=== PATIENT | female | born 1935 | race Caucasian/White ===

== ENCOUNTER 2020-09-11 14:59 | Emergency (ER) | payer MEDICARE, SELFPAY ==
[2020-09-11] VITALS (8 sets, daily range): BP systolic 147–189; BP diastolic 60–85; PULSE 72–102; RESP 17–18; TEMP 36.6–36.8; O2SAT 97–100; BMI 22.3
--- NOTE | ~2020-09-11 | CT_ITS ---
EXAMINATION: CT BRAIN AND CT CERVICAL SPINE. CLINICAL INFORMATION: Fall, dementia. COMPARISON: None TECHNIQUE: 5 mm thin axial and reformatted 2 mm thin coronal and sagittal images of brain were obtained without contrast. Axial 3 mm thin and reformatted 2 mm thin sagittal and coronal images of brain were obtained. DLP 833 FINDINGS: Brain: There is no acute intra-axial, extra-axial bleed, masses or midline shift. There is no acute infarction in evolution. The lateral ventricles are symmetrical in size and configuration without enlargement. Garrido to white matter differentiation is maintained normal. There is atherosclerotic calcification of bilateral internal carotid, vertebral and basilar arteries. Bone windows reveal no calvarial abnormality. There is no scalp soft tissue abnormality. Bilateral paranasal sinuses and mastoid air cells are well-aerated. Cervical spine: There is normal cervical lordosis. The vertebral heights are normal. There is grade 1 anterolisthesis C4 over C5. Rest of the vertebral alignment is preserved. There is moderate loss of disc height, posterior spondylosis and vacuum disc phenomena at the C6-C7 disc level. Minimal loss of C3-C4 disc height is noted. The craniovertebral junction appears normal. The C1-C2 alignment is normal. There is mild to moderate right C2-C3 moderate to significant left C4-C5 facet joint arthropathy. Craniovertebral junction and C1-C2 alignment is normal. There is a small bone island in sclerotic left C1 lateral mass. No visible acute acute fracture, dislocation or subluxation seen. The paravertebral soft tissues are normal. No lytic process seen. Mild scarring is seen in both lung apices. CT/CT cervical spine wo con IMPRESSION: No acute intracranial process seen. Age-related cerebral volume loss with atherosclerotic vascular calcification. There is no acute fracture, dislocation. There is grade 1 anterolisthesis C4 over C5 with significant degenerative disc changes and vacuum disc phenomena at C6-C7 disc level.
--- NOTE | ~2020-09-11 | CT_ITS ---
EXAMINATION: CT CHEST, ABDOMEN AND PELVIS WITHOUT CONTRAST CLINICAL INFORMATION: Reason for Exam unwitnessed falls COMPARISON: No pertinent prior studies are available for comparison. TECHNIQUE: Multidetector volumetric imaging was performed from the thoracic inlet through the pubic symphysis without IV contrast. Sagittal and coronal reformatted images were obtained on the technologist's workstation. This CT examination was performed using dose optimization techniques as appropriate, variously including the following: *Automated exposure control *Adjustment of mA and/or kV according to patient size (this includes techniques or standardized protocols for targeted exams where dose is matched to indication/reason for exam; i.e. extremities or head) *Use of iterative reconstruction technique DLP: 517 mGy-cm FINDINGS: CHEST: Lung: Atelectasis is present. At the lung bases. Mediastinum: Heart size is normal. Extensive coronary artery calcifications are present. No mediastinal hematoma is seen. Pericardium/Pleura: No significant effusion. No pleural mass or thickening. No pneumothorax is present. Chest Wall/Axilla: No chest wall injury. No rib fractures seen. An chronic appearing compression fracture noted in T12. Degenerative changes noted through the rest of the thoracic spine a hemangioma is present in the T4 vertebral body. ABDOMEN/PELVIS: Peritoneal Space: No significant free air or free fluid identified. Liver, Gallbladder, Biliary Tree: The liver is normal in size, shape, and attenuation. No focal hepatic lesion or biliary ductal dilatation is present. The gallbladder is unremarkable with no evidence of radiopaque gallstones, gallbladder wall thickening, or obvious pericholecystic inflammatory changes. Pancreas: Unremarkable Spleen: Unremarkable Adrenal Glands: Unremarkable Kidneys and Ureters: The kidneys are normal in size, shape, and attenuation. No hydronephrosis, hydroureter, or calculi seen. No perinephric stranding. Bladder: Bladder is nearly empty but unremarkable. Gastrointestinal Tract: Large hiatal hernia is present with most of the stomach within the chest. Extensive colonic diverticular changes are present especially in the sigmoid. No convincing evidence of diverticulitis. The small bowel is unremarkable. The appendix is unremarkable. Abdominal Wall: No significant hernia is appreciated. Lymph Nodes: No retroperitoneal lymphadenopathy seen. Vascular: Calcific atherosclerotic changes present in the aorta and its branches. The IVC appears unremarkable. PELVIC VISCERA: Free fluid is present in the pelvis. This is greater density and not blood density. There is a rounded 7.7 x 4.3 x 4.5 cm fluid density mass in the left adnexa which may represent a left ovarian cyst. A small retroflexed uterus appears to be present. No right adnexal mass is seen. OSSEUS STRUCTURES: Marked osteopenia and degenerative changes with multiple probably chronic compression fractures involving L4 L3 and L2 L1 and T12. Marked degenerative changes present in both hips. No hip CT/CT abdomen pelvis wo con fracture seen. IMPRESSION: No evidence of an acute traumatic injury. Incidental note made of: 1. Extensive coronary disease 2. Multiple vertebral compression fractures and marked degenerative changes in both hips 3. Large hiatal hernia with much of the stomach within the chest 4. Extensive colonic diverticular disease without diverticulitis 5. Large left ovarian cyst which is not normal for patient of 85 years of age. Recommend follow-up ultrasound in 3-6 months
--- NOTE | 2020-09-11 15:24 | PC.NURSE ---
patient [id number], pt stated she has chest pressure not actual pain- unable to put a number on the pain scale, panel monitor applied nsr 80s, vss, pt awaiting provider, will continue to monitor.
--- NOTE | 2020-09-11 15:39 | ED_ITS ---
HPI - Chest Pain General Chief Complaint: Chest Pain <LEAH Ramsey Last Filed: 09/11/20 16:41> Stated Complaint: general weakness <LEAH Ramsey Last Filed: 09/11/20 16:41> Time Seen by Provider: 09/11/20 15:27 <LEAH Ramsey Last Filed: 09/11/20 16:41> Source: EMS <LEAH Ramsey Last Filed: 09/11/20 16:41> Mode of arrival: EMS <LEAH Ramsey Last Filed: 09/11/20 16:41> History of Present Illness HPI narrative: 85-year-old female with a past medical history hypertension, hypothyroid, dementia, hyperlipidemia, osteopenia BIBA stating she was unable to get herself off the couch this morning with increased weakness. Also reports 2 falls at home. States she lives at home alone, ambulates with cane. Admits to substernal chest discomfort. Denies SOB, abdominal pain, nausea/vomiting. Denies head trauma or LOC during falls History limited due to patient's baseline dementia <LEAH Ramsey Last Filed: 09/11/20 16:41> MD complaint: chest discomfort <LEAH Ramsey Last Filed: 09/11/20 16:41> Related Data Home Medications: Home Medications Medication Instructions Recorded Confirmed [id number] acid 0.4 1 tab PO DAILY 06/25/20 09/11/20 mg-lycopene 300 mcg-lutein 250 mcg tablet lisinopril-hydrochlorothiazide 1 tab PO DAILY 09/11/20 09/11/20 Previous Rx's Medication Instructions Recorded atorvastatin 40 mg tablet 40 mg PO DAILY #90 tab 04/29/20 levothyroxine 50 mcg tablet 50 mcg PO DAILY #90 tab 07/02/20 <LEAH Ramsey Last Filed: 09/11/20 16:41> Allergies/Adverse Reactions: Allergies Allergy/AdvReac Type Severity Reaction Status Date / Time No Known Allergies Allergy Verified 06/25/20 15:10 <LEAH Ramsey Last Filed: 09/11/20 16:41> Review of Systems Review of Systems: Constitutional: No Fever, No Chills Cardiovascular: + Chest Pain, No SOB Respiratory: No Cough Gastrointestinal: No Nausea, No Vomiting, No Diarrhea, No Abdominal pain Musculoskeletal: No joint pain Skin: No Skin Lesions, No rash Neuro: + Weakness History limited due to patient's baseline dementia <LEAH Ramsey - Last Filed: 09/11/20 16:41> Yes all other systems are reviewed and are negative <LEAH Ramsey - Last Filed: 09/11/20 16:41> [facility] Past Medical History Attestation statement: The following information was validated with the patient. <LEAH Ramsey - Last Filed: 09/11/20 16:41> Medical History: Medical History (Updated 09/11/20 @ 16:41 by LEAH Ramsey) Acquired hypothyroidism Dementia Dyslipidemia Essential hypertension Influenza vaccination declined Mammogram declined Menopause syndrome Osteopenia Squamous cell carcinoma Vaccination refused by patient <LEAH Ramsey - Last Filed: 09/11/20 16:41> Family History Family History: Family History Sister Brain cancer <LEAH Ramsey - Last Filed: 09/11/20 16:41> Social History Social History: Social History Alcohol intake: never Smoking Status: Former smoker Use of substances other than those prescribed or required for medical reasons: No Advance Directives: No Advance Directives Information Provided: Yes <LEAH Ramsey - Last Filed: 09/11/20 16:41> Physical Exam Vital Signs: Vital Signs: Last Vital Signs Temp 98.2 F 09/11/20 22:39 Pulse 76 09/12/20 03:50 Resp 20 09/12/20 03:50 BP 162/67 H 09/12/20 03:50 Pulse Ox 98 09/12/20 03:50 Body Mass Index 22.3 <LEAH Ramsey - Last Filed: 09/11/20 16:41> Vital Signs: Last Vital Signs Temp 98.2 F 09/11/20 22:39 Pulse 76 09/12/20 03:50 Resp 20 09/12/20 03:50 BP 162/67 H 09/12/20 03:50 Pulse Ox 98 09/12/20 03:50 Body Mass Index 22.3 <Gisel Ceja NP - Last Filed: 09/12/20 01:45> Vital Signs: Last Vital Signs Temp 98.2 F 09/11/20 22:39 Pulse 76 09/12/20 03:50 Resp 20 09/12/20 03:50 BP 162/67 H 09/12/20 03:50 Pulse Ox 98 09/12/20 03:50 Body Mass Index 22.3 <Lincoln Mcfarland MD - Last Filed: 09/12/20 05:02> Const: General: cooperative, healthy appearing and comfortable <Kymberly Fatima PA - Last Filed: 09/11/20 16:41> Orientation/consciousness: patient oriented x3 <Kymberly Fatima PA - Last Filed: 09/11/20 16:41> Limitations: no limitations <Kymberly Fatima PA - Last Filed: 09/11/20 16:41> HENMT: Head: Yes normal to inspection <LEAH Ramsey - Last Filed: 09/11/20 16:41> Ears: hearing grossly normal bilaterally <Kymberly Fatima PA - Last Filed: 09/11/20 16:41> General nose exam: Normal external nose present <Kymberly Fatima PA - Last Filed: 09/11/20 16:41> Face and sinus: Yes normal facial exam <Kymberly Fatima PA - Last Filed: 09/11/20 16:41> Eyes: General: appearance normal, both eyes and all related structures <Kymberly Fatima PA - Last Filed: 09/11/20 16:41> Pupils: Equal, round and reactive pupils present <Kymberly Fatima PA - Last Filed: 09/11/20 16:41> EOM: EOMs intact bilaterally <Kymberly Fatima PA - Last Filed: 09/11/20 16:41> Neck: Neck: Yes normal visual inspection and Yes no meningeal signs <Kymberly Fatima PA - Last Filed: 09/11/20 16:41> Resp: Effort & Inspection: normal respiratory effort <Kymberly Fatima PA - Last Filed: 09/11/20 16:41> Auscultation: clear to auscultation bilaterally, no rhonchi and no wheezes <Kymberly Fatima PA - Last Filed: 09/11/20 16:41> Cardio: Rate: regular rate <Kymberly Akua [place] - Last Filed: 09/11/20 16:41> Heart sounds: S1 normal heart sound present and S2 normal heart sound present <Kymberly Akua PA - Last Filed: 09/11/20 16:41> GI: Inspection: Yes normal to inspection <Kymberly Fatima [place] - Last Filed: 09/11/20 16:41> Palpation (GI): Soft to palpation, nontender, no guarding and not rigid <Kymberly Akua [place] - Last Filed: 09/11/20 16:41> Skin: Rashes: no rashes <Kymberly Fatima [place] - Last Filed: 09/11/20 16:41> Wounds: no wounds <Kymberlydong Fatima [place] - Last Filed: 09/11/20 16:41> Neuro: General: patient oriented x3, tone normal, moves all extremities, no meningeal signs, no focal motor deficits and CN's II-XI intact bilaterally <Kymberly Akua [place] - Last Filed: 09/11/20 16:41> Cranial nerves: Yes Equal, round and reactive pupils present <Kymberly Fatima [place] - Last Filed: 09/11/20 16:41> Gait exam (Neuro): Normal gait present <Kymberly Fatima [place] - Last Filed: 09/11/20 16:41> Motor exam (neuro): 5/5 motor strength present throughout, Pronator motor function not present and no tremor noted <Kymberly Fatima [place] - Last Filed: 09/11/20 16:41> Extrem: General: Yes normal to inspection and Yes no pedal edema <Kymberly Fatima [place] - Last Filed: 09/11/20 16:41> Course Course Course Narrative: CT head/brain wo con IMPRESSION: No acute intracranial process seen. Age-related cerebral volume loss with atherosclerotic vascular calcification. There is no acute fracture, dislocation. There is grade 1 anterolisthesis C4 over C5 with significant degenerative disc changes and vacuum disc phenomena at C6-C7 disc level. --1700-- ED care transferred to [facility] pending labs, UA, and dispo per results. If WNL anticipate PT/case management <LEAH Ramsey - Last Filed: 09/11/20 16:41> 6:25 p.m. labs indicate elevated white count 11.7, H&H 8.6/28.8, occult stool sample sent. Discussion with RN regarding pending urine, order for straight catheterization. A review of records indicates her last H&H on March of 2017 was 12.2/37.0, I do not have access to her more recent lab values. COVID swab is negative. 6:55 p.m., son Ed called, son was updated on patient's status, he does not have much information on her medical history, will call his sister. Occult stool negative. Troponin is negative. 7:05 p.m. discussion with patient's daughter Telma, patient does have undiagnosed dementia per family, last known fall was few years ago but patient did complain of back pain over the past couple of days. There is no known history of anemia according to the daughter. Will order CT of abdomen and pelvis at this time. 9:[address] scan of abdomen pelvis shows a large suspected ovarian cyst which is abnormal for a person of her age. Discussion with family regarding plan, daughter Telma at [phone]. Family expresses concerns regarding patient's return home due to weakness, and suspicion of multiple falls. Family was offered case Management, licensed clinical social worker and Physical therapy evaluation. Telma would like to discuss this option with her brothers and sisters before pursuing this option. 9:54 p.m. discussion with Telma, family would like to pursue case Management, licensed clinical social worker and Physical therapy consult. Patient will remain full code. Midnight. Sign out to Dr. Mcfarland. <Gisel Ceja NP - Last Filed: 09/12/20 01:45> MDM - Chest Pain MDM Narrative Medical decision making narrative: 85-year-old female with a past medical history hypertension, hypothyroid, dementia, hyperlipidemia, osteopenia BIBA stating she was unable to get herself off the couch this morning with increased weakness. Also reports 2 falls at home. On exam VSS, NAD/well-appearing, no focal neuro deficits, A&O x3, repetitive, history limited due to baseline dementia. Unable to get in touch with patient's children/family for better history Plan: EKG, labs, UA, imaging, anticipated PT/case management <LEAH Ramsey - Last Filed: 09/11/20 16:41> Differential Diagnosis Differential diagnosis: Likely fracture of rib, pneumothorax, unstable angina pectoris, atypical chest pain, st elevation myocardial infarction and costochondritis <Gisel Ceja NP - Last Filed: 09/12/20 01:45> Medical Records Data Attestation: I reviewed the patient's medical records. <LEAH Ramsey - Last Filed: 09/11/20 16:41> I reviewed the patient's medical records. <Gisel Ceja NP - Last File d: 09/12/20 01:45> Lab Data Attestation: I reviewed the patient's lab results. <LEAH Ramsey - Last Filed: 09/11/20 16:41> I reviewed the patient's lab results. <Gisel Ceja NP - Last Filed: 09/12/20 01:45> Result diagrams: : 09/12/20 04:20 09/11/20 20:42 <LEAH Ramsey - Last Filed: 09/11/20 16:41> Labs: Lab Results 09/11/20 09/11/20 09/11/20 Range/Units 16:38 18:09 18:09 WBC 11.7 H (4.8-10.8) X10*3/uL RBC 4.38 (4.20-5.50) X10*6/uL Hgb 8.6 L (12.0-16.0) g/dl Hct 28.8 L (37-47) % MCV 65.8 L (80-98) fL MCH 19.6 L (27.0-33.0) pg MCHC 29.9 L (31.0-35.0) g/dl RDW 20.0 H (11.0-16.0) % Plt Count 339 (160-400) X10*3/uL MPV 10.1 (9.4-12.3) fL Immature Gran % (Auto) 0.3 (0.0-0.4) % Neut % (Auto) 80.0 H (45-73) % Lymph % (Auto) 11.7 L (20-40) % [place] % (Auto) 7.2 (2-11) % Eos % (Auto) 0.3 (0-4) % Baso % (Auto) 0.5 (0-2) % Lymph # (Auto) 1.4 (1.2-4.9) X10*3/uL [place] # (Auto) 0.9 (0.1-1.2) X10*3/uL Eos # (Auto) 0.0 (0.0-0.4) X10*3/uL Baso # (Auto) 0.1 (0.0-0.2) X10*3/uL Abs Immat Gran (auto) 0.03 (0.00-0.03) X10*3/uL Absolute Neuts (auto) 9.4 H (2.0-8.3) X10*3/uL Absolute Nucleated RBC 0.000 (0.0-0.012) X10*3/uL Nucleated RBC % (auto) 0.0 (0.0-0.2) /100WBC PT 13.1 H (10.8-13.0) SEC INR 1.1 (0.9-1.1) APTT 28.0 (24.1-38.0) SEC Sodium (135-145) mmol/L Potassium (3.3-5.1) mmol/L Chloride (96-108) mmol/L Carbon Dioxide (22-29) mmol/L Anion Gap (12-20) BUN (9-16) mg/dL Creatinine (0.5-1.4) mg/dL Estim Creat Clear Calc Estimated GFR Random Glucose (60-115) mg/dL Lactic Acid (0.5-2.0) mmol/L Calcium (8.4-10.2) mg/dL Magnesium (1.6-2.6) mg/dL Total Bilirubin (0.0-1.0) mg/dL Direct Bilirubin (0.0-0.5) mg/dL AST (5-31) U/L ALT (0-31) U/L Alkaline Phosphatase (39-117) U/L Total Creatine Kinase (26-140) U/L Troponin I High Sens (<3.5-17.0) ng/L Total Protein (6.5-8.0) g/dL Albumin (3.5-5.0) g/dL Urine Color Urine Appearance Urine pH (5.0-8.0) Ur Specific [place] (1.005-1.025) Urine Protein (NEG-TRACE) MG/DL Urine Glucose (UA) (NEG) MG/DL Urine Ketones (NEG) MG/DL Urine Blood (NEG) Urine Nitrite (NEG) Ur Leukocyte Esterase (NEG) Urine RBC (0) /HPF Urine WBC (0-4) /HPF Ur Squamous Epith Cells /LPF Urine Bacteria /LPF Stool Occult Blood (NEG) Coronavirus (PCR) NEGATIVE (Negative) Influenza Type A (PCR) NEGATIVE (Negative) Influenza Type B (PCR) NEGATIVE (Negative) RSV RNA Qual (PCR) NEGATIVE (Negative) 09/11/20 09/11/20 09/11/20 Range/Units 18:09 18:37 18:38 WBC (4.8-10.8) X10*3/uL RBC (4.20-5.50) X10*6/uL Hgb (12.0-16.0) g/dl Hct (37-47) % MCV (80-98) fL MCH (27.0-33.0) pg MCHC (31.0-35.0) g/dl RDW (11.0-16.0) % Plt Count (160-400) X10*3/uL MPV (9.4-12.3) fL Immature Gran % (Auto) (0.0-0.4) % Neut % (Auto) (45-73) % Lymph % (Auto) (20-40) % [place] % (Auto) (2-11) % Eos % (Auto) (0-4) % Baso % (Auto) (0-2) % Lymph # (Auto) (1.2-4.9) X10*3/uL [place] # (Auto) (0.1-1.2) X10*3/uL Eos # (Auto) (0.0-0.4) X10*3/uL Baso # (Auto) (0.0-0.2) X10*3/uL Abs Immat Gran (auto) (0.00-0.03) X10*3/uL Absolute Neuts (auto) (2.0-8.3) X10*3/uL Absolute Nucleated RBC (0.0-0.012) X10*3/uL Nucleated RBC % (auto) (0.0-0.2) /100WBC PT (10.8-13.0) SEC INR (0.9-1.1) APTT (24.1-38.0) SEC Sodium (135-145) mmol/L Potassium (3.3-5.1) mmol/L Chloride (96-108) mmol/L Carbon Dioxide (22-29) mmol/L Anion Gap (12-20) BUN (9-16) mg/dL Creatinine (0.5-1.4) mg/dL Estim Creat Clear Calc Estimated GFR Random Glucose (60-115) mg/dL Lactic Acid (0.5-2.0) mmol/L Calcium (8.4-10.2) mg/dL Magnesium (1.6-2.6) mg/dL Total Bilirubin (0.0-1.0) mg/dL Direct Bilirubin (0.0-0.5) mg/dL AST (5-31) U/L ALT (0-31) U/L Alkaline Phosphatase (39-117) U/L Total Creatine Kinase (26-140) U/L Troponin I High Sens < 3.5 (<3.5-17.0) ng/L Total Protein (6.5-8.0) g/dL Albumin (3.5-5.0) g/dL Urine Color YELLOW Urine Appearance CLEAR Urine pH 6.0 (5.0-8.0) Ur Specific [place] 1.020 (1.005-1.025) Urine Protein NEG (NEG-TRACE) MG/DL Urine Glucose (UA) NEG (NEG) MG/DL Urine Ketones 15 (NEG) MG/DL Urine Blood NEG (NEG) Urine Nitrite NEG (NEG) Ur Leukocyte Esterase TRACE H (NEG) Urine RBC 0-2 (0) /HPF Urine WBC 1-4 (0-4) /HPF Ur Squamous Epith Cells 1+ /LPF Urine Bacteria 1+ /LPF Stool Occult Blood NEG (NEG) Coronavirus (PCR) (Negative) Influenza Type A (PCR) (Negative) Influenza Type B (PCR) (Negative) RSV RNA Qual (PCR) (Negative) 09/11/20 09/11/20 09/11/20 Range/Units 20:42 20:43 23:57 WBC (4.8-10.8) X10*3/uL RBC (4.20-5.50) X10*6/uL Hgb (12.0-16.0) g/dl Hct (37-47) % MCV (80-98) fL MCH (27.0-33.0) pg MCHC (31.0-35.0) g/dl RDW (11.0-16.0) % Plt Count (160-400) X10*3/uL MPV (9.4-12.3) fL Immature Gran % (Auto) (0.0-0.4) % Neut % (Auto) (45-73) % Lymph % (Auto) (20-40) % [place] % (Auto) (2-11) % Eos % (Auto) (0-4) % Baso % (Auto) (0-2) % Lymph # (Auto) (1.2-4.9) X10*3/uL [place] # (Auto) (0.1-1.2) X10*3/uL Eos # (Auto) (0.0-0.4) X10*3/uL Baso # (Auto) (0.0-0.2) X10*3/uL Abs Immat Gran (auto) (0.00-0.03) X10*3/uL Absolute Neuts (auto) (2.0-8.3) X10*3/uL Absolute Nucleated RBC (0.0-0.012) X10*3/uL Nucleated RBC % (auto) (0.0-0.2) /100WBC PT (10.8-13.0) SEC INR (0.9-1.1) APTT (24.1-38.0) SEC Sodium 136 (135-145) mmol/L Potassium 3.4 (3.3-5.1) mmol/L Chloride 105 (96-108) mmol/L Carbon Dioxide 23 (22-29) mmol/L Anion Gap 11 L (12-20) BUN 13 (9-16) mg/dL Creatinine 0.77 (0.5-1.4) mg/dL Estim Creat Clear Calc 46.9 Estimated GFR > 60 Random Glucose 100 (60-115) mg/dL Lactic Acid 0.9 (0.5-2.0) mmol/L Calcium 8.8 (8.4-10.2) mg/dL Magnesium 2.0 (1.6-2.6) mg/dL Total Bilirubin 0.5 (0.0-1.0) mg/dL Direct Bilirubin 0.3 (0.0-0.5) mg/dL AST 19 (5-31) U/L ALT 10 (0-31) U/L Alkaline Phosphatase 79 (39-117) U/L Total Creatine Kinase 39 (26-140) U/L Troponin I High Sens 4.1 (<3.5-17.0) ng/L Total Protein 6.5 (6.5-8.0) g/dL Albumin 3.7 (3.5-5.0) g/dL Urine Color Urine Appearance Urine pH (5.0-8.0) Ur Specific [place] (1.005-1.025) Urine Protein (NEG-TRACE) MG/DL Urine Glucose (UA) (NEG) MG/DL Urine Ketones (NEG) MG/DL Urine Blood (NEG) Urine Nitrite (NEG) Ur Leukocyte Esterase (NEG) Urine RBC (0) /HPF Urine WBC (0-4) /HPF Ur Squamous Epith Cells /LPF Urine Bacteria /LPF Stool Occult Blood (NEG) Coronavirus (PCR) (Negative) Influenza Type A (PCR) (Negative) Influenza Type B (PCR) (Negative) RSV RNA Qual (PCR) (Negative) 09/12/20 09/12/20 Range/Units 04:20 04:20 WBC (4.8-10.8) X10*3/uL RBC (4.20-5.50) X10*6/uL Hgb 7.9 L (12.0-16.0) g/dl Hct 27.0 L (37-47) % MCV (80-98) fL MCH (27.0-33.0) pg MCHC (31.0-35.0) g/dl RDW (11.0-16.0) % Plt Count (160-400) X10*3/uL MPV (9.4-12.3) fL Immature Gran % (Auto) (0.0-0.4) % Neut % (Auto) (45-73) % Lymph % (Auto) (20-40) % [place] % (Auto) (2-11) % Eos % (Auto) (0-4) % Baso % (Auto) (0-2) % Lymph # (Auto) (1.2-4.9) X10*3/uL [place] # (Auto) (0.1-1.2) X10*3/uL Eos # (Auto) (0.0-0.4) X10*3/uL Baso # (Auto) (0.0-0.2) X10*3/uL Abs Immat Gran (auto) (0.00-0.03) X10*3/uL Absolute Neuts (auto) (2.0-8.3) X10*3/uL Absolute Nucleated RBC (0.0-0.012) X10*3/uL Nucleated RBC % (auto) (0.0-0.2) /100WBC PT (10.8-13.0) SEC INR (0.9-1.1) APTT (24.1-38.0) SEC Sodium (135-145) mmol/L Potassium (3.3-5.1) mmol/L Chloride (96-108) mmol/L Carbon Dioxide (22-29) mmol/L Anion Gap (12-20) BUN (9-16) mg/dL Creatinine (0.5-1.4) mg/dL Estim Creat Clear Calc Estimated GFR Random Glucose (60-115) mg/dL Lactic Acid (0.5-2.0) mmol/L Calcium (8.4-10.2) mg/dL Magnesium (1.6-2.6) mg/dL Total Bilirubin (0.0-1.0) mg/dL Direct Bilirubin (0.0-0.5) mg/dL AST (5-31) U/L ALT (0-31) U/L Alkaline Phosphatase (39-117) U/L Total Creatine Kinase (26-140) U/L Troponin I High Sens 5.1 (<3.5-17.0) ng/L Total Protein (6.5-8.0) g/dL Albumin (3.5-5.0) g/dL Urine Color Urine Appearance Urine pH (5.0-8.0) Ur Specific [place] (1.005-1.025) Urine Protein (NEG-TRACE) MG/DL Urine Glucose (UA) (NEG) MG/DL Urine Ketones (NEG) MG/DL Urine Blood (NEG) Urine Nitrite (NEG) Ur Leukocyte Esterase (NEG) Urine RBC (0) /HPF Urine WBC (0-4) /HPF Ur Squamous Epith Cells /LPF Urine Bacteria /LPF Stool Occult Blood (NEG) Coronavirus (PCR) (Negative) Influenza Type A (PCR) (Negative) Influenza Type B (PCR) (Negative) RSV RNA Qual (PCR) (Negative) <LEAH Ramsey - Last Filed: 09/11/20 16:41> Lab Results 09/11/20 09/11/20 09/11/20 Range/Units 16:38 18:09 18:09 WBC 11.7 H (4.8-10.8) X10*3/uL RBC 4.38 (4.20-5.50) X10*6/uL Hgb 8.6 L (12.0-16.0) g/dl Hct 28.8 L (37-47) % MCV 65.8 L (80-98) fL MCH 19.6 L (27.0-33.0) pg MCHC 29.9 L (31.0-35.0) g/dl RDW 20.0 H (11.0-16.0) % Plt Count 339 (160-400) X10*3/uL MPV 10.1 (9.4-12.3) fL Immature Gran % (Auto) 0.3 (0.0-0.4) % Neut % (Auto) 80.0 H (45-73) % Lymph % (Auto) 11.7 L (20-40) % [place] % (Auto) 7.2 (2-11) % Eos % (Auto) 0.3 (0-4) % Baso % (Auto) 0.5 (0-2) % Lymph # (Auto) 1.4 (1.2-4.9) X10*3/uL [place] # (Auto) 0.9 (0.1-1.2) X10*3/uL Eos # (Auto) 0.0 (0.0-0.4) X10*3/uL Baso # (Auto) 0.1 (0.0-0.2) X10*3/uL Abs Immat Gran (auto) 0.03 (0.00-0.03) X10*3/uL Absolute Neuts (auto) 9.4 H (2.0-8.3) X10*3/uL Absolute Nucleated RBC 0.000 (0.0-0.012) X10*3/uL Nucleated RBC % (auto) 0.0 (0.0-0.2) /100WBC PT 13.1 H (10.8-13.0) SEC INR 1.1 (0.9-1.1) APTT 28.0 (24.1-38.0) SEC Sodium (135-145) mmol/L Potassium (3.3-5.1) mmol/L Chloride (96-108) mmol/L Carbon Dioxide (22-29) mmol/L Anion Gap (12-20) BUN (9-16) mg/dL Creatinine (0.5-1.4) mg/dL Estim Creat Clear Calc Estimated GFR Random Glucose (60-115) mg/dL Lactic Acid (0.5-2.0) mmol/L Calcium (8.4-10.2) mg/dL Magnesium (1.6-2.6) mg/dL Total Bilirubin (0.0-1.0) mg/dL Direct Bilirubin (0.0-0.5) mg/dL AST (5-31) U/L ALT (0-31) U/L Alkaline Phosphatase (39-117) U/L Total Creatine Kinase (26-140) U/L Troponin I High Sens (<3.5-17.0) ng/L Total Protein (6.5-8.0) g/dL Albumin (3.5-5.0) g/dL Urine Color Urine Appearance Urine pH (5.0-8.0) Ur Specific [place] (1.005-1.025) Urine Protein (NEG-TRACE) MG/DL Urine Glucose (UA) (NEG) MG/DL Urine Ketones (NEG) MG/DL Urine Blood (NEG) Urine Nitrite (NEG) Ur Leukocyte Esterase (NEG) Urine RBC (0) /HPF Urine WBC (0-4) /HPF Ur Squamous Epith Cells /LPF Urine Bacteria /LPF Stool Occult Blood (NEG) Coronavirus (PCR) NEGATIVE (Negative) Influenza Type A (PCR) NEGATIVE (Negative) Influenza Type B (PCR) NEGATIVE (Negative) RSV RNA Qual (PCR) NEGATIVE (Negative) 09/11/20 09/11/20 09/11/20 Range/Units 18:09 18:37 18:38 WBC (4.8-10.8) X10*3/uL RBC (4.20-5.50) X10*6/uL Hgb (12.0-16.0) g/dl Hct (37-47) % MCV (80-98) fL MCH (27.0-33.0) pg MCHC (31.0-35.0) g/dl RDW (11.0-16.0) % Plt Count (160-400) X10*3/uL MPV (9.4-12.3) fL Immature Gran % (Auto) (0.0-0.4) % Neut % (Auto) (45-73) % Lymph % (Auto) (20-40) % [place] % (Auto) (2-11) % Eos % (Auto) (0-4) % Baso % (Auto) (0-2) % Lymph # (Auto) (1.2-4.9) X10*3/uL [place] # (Auto) (0.1-1.2) X10*3/uL Eos # (Auto) (0.0-0.4) X10*3/uL Baso # (Auto) (0.0-0.2) X10*3/uL Abs Immat Gran (auto) (0.00-0.03) X10*3/uL Absolute Neuts (auto) (2.0-8.3) X10*3/uL Absolute Nucleated RBC (0.0-0.012) X10*3/uL Nucleated RBC % (auto) (0.0-0.2) /100WBC PT (10.8-13.0) SEC INR (0.9-1.1) APTT (24.1-38.0) SEC Sodium (135-145) mmol/L Potassium (3.3-5.1) mmol/L Chloride (96-108) mmol/L Carbon Dioxide (22-29) mmol/L Anion Gap (12-20) BUN (9-16) mg/dL Creatinine (0.5-1.4) mg/dL Estim Creat Clear Calc Estimated GFR Random Glucose (60-115) mg/dL Lactic Acid (0.5-2.0) mmol/L Calcium (8.4-10.2) mg/dL Magnesium (1.6-2.6) mg/dL Total Bilirubin (0.0-1.0) mg/dL Direct Bilirubin (0.0-0.5) mg/dL AST (5-31) U/L ALT (0-31) U/L Alkaline Phosphatase (39-117) U/L Total Creatine Kinase (26-140) U/L Troponin I High Sens < 3.5 (<3.5-17.0) ng/L Total Protein (6.5-8.0) g/dL Albumin (3.5-5.0) g/dL Urine Color YELLOW Urine Appearance CLEAR Urine pH 6.0 (5.0-8.0) Ur Specific [place] 1.020 (1.005-1.025) Urine Protein NEG (NEG-TRACE) MG/DL Urine Glucose (UA) NEG (NEG) MG/DL Urine Ketones 15 (NEG) MG/DL Urine Blood NEG (NEG) Urine Nitrite NEG (NEG) Ur Leukocyte Esterase TRACE H (NEG) Urine RBC 0-2 (0) /HPF Urine WBC 1-4 (0-4) /HPF Ur Squamous Epith Cells 1+ /LPF Urine Bacteria 1+ /LPF Stool Occult Blood NEG (NEG) Coronavirus (PCR) (Negative) Influenza Type A (PCR) (Negative) Influenza Type B (PCR) (Negative) RSV RNA Qual (PCR) (Negative) 09/11/20 09/11/20 09/11/20 Range/Units 20:42 20:43 23:57 WBC (4.8-10.8) X10*3/uL RBC (4.20-5.50) X10*6/uL Hgb (12.0-16.0) g/dl Hct (37-47) % MCV (80-98) fL MCH (27.0-33.0) pg MCHC (31.0-35.0) g/dl RDW (11.0-16.0) % Plt Count (160-400) X10*3/uL MPV (9.4-12.3) fL Immature Gran % (Auto) (0.0-0.4) % Neut % (Auto) (45-73) % Lymph % (Auto) (20-40) % [place] % (Auto) (2-11) % Eos % (Auto) (0-4) % Baso % (Auto) (0-2) % Lymph # (Auto) (1.2-4.9) X10*3/uL [place] # (Auto) (0.1-1.2) X10*3/uL Eos # (Auto) (0.0-0.4) X10*3/uL Baso # (Auto) (0.0-0.2) X10*3/uL Abs Immat Gran (auto) (0.00-0.03) X10*3/uL Absolute Neuts (auto) (2.0-8.3) X10*3/uL Absolute Nucleated RBC (0.0-0.012) X10*3/uL Nucleated RBC % (auto) (0.0-0.2) /100WBC PT (10.8-13.0) SEC INR (0.9-1.1) APTT (24.1-38.0) SEC Sodium 136 (135-145) mmol/L Potassium 3.4 (3.3-5.1) mmol/L Chloride 105 (96-108) mmol/L Carbon Dioxide 23 (22-29) mmol/L Anion Gap 11 L (12-20) BUN 13 (9-16) mg/dL Creatinine 0.77 (0.5-1.4) mg/dL Estim Creat Clear Calc 46.9 Estimated GFR > 60 Random Glucose 100 (60-115) mg/dL Lactic Acid 0.9 (0.5-2.0) mmol/L Calcium 8.8 (8.4-10.2) mg/dL Magnesium 2.0 (1.6-2.6) mg/dL Total Bilirubin 0.5 (0.0-1.0) mg/dL Direct Bilirubin 0.3 (0.0-0.5) mg/dL AST 19 (5-31) U/L ALT 10 (0-31) U/L Alkaline Phosphatase 79 (39-117) U/L Total Creatine Kinase 39 (26-140) U/L Troponin I High Sens 4.1 (<3.5-17.0) ng/L Total Protein 6.5 (6.5-8.0) g/dL Albumin 3.7 (3.5-5.0) g/dL Urine Color Urine Appearance Urine pH (5.0-8.0) Ur Specific [place] (1.005-1.025) Urine Protein (NEG-TRACE) MG/DL Urine Glucose (UA) (NEG) MG/DL Urine Ketones (NEG) MG/DL Urine Blood (NEG) Urine Nitrite (NEG) Ur Leukocyte Esterase (NEG) Urine RBC (0) /HPF Urine WBC (0-4) /HPF Ur Squamous Epith Cells /LPF Urine Bacteria /LPF Stool Occult Blood (NEG) Coronavirus (PCR) (Negative) Influenza Type A (PCR) (Negative) Influenza Type B (PCR) (Negative) RSV RNA Qual (PCR) (Negative) 09/12/20 09/12/20 Range/Units 04:20 04:20 WBC (4.8-10.8) X10*3/uL RBC (4.20-5.50) X10*6/uL Hgb 7.9 L (12.0-16.0) g/dl Hct 27.0 L (37-47) % MCV (80-98) fL MCH (27.0-33.0) pg MCHC (31.0-35.0) g/dl RDW (11.0-16.0) % Plt Count (160-400) X10*3/uL MPV (9.4-12.3) fL Immature Gran % (Auto) (0.0-0.4) % Neut % (Auto) (45-73) % Lymph % (Auto) (20-40) % [place] % (Auto) (2-11) % Eos % (Auto) (0-4) % Baso % (Auto) (0-2) % Lymph # (Auto) (1.2-4.9) X10*3/uL [place] # (Auto) (0.1-1.2) X10*3/uL Eos # (Auto) (0.0-0.4) X10*3/uL Baso # (Auto) (0.0-0.2) X10*3/uL Abs Immat Gran (auto) (0.00-0.03) X10*3/uL Absolute Neuts (auto) (2.0-8.3) X10*3/uL Absolute Nucleated RBC (0.0-0.012) X10*3/uL Nucleated RBC % (auto) (0.0-0.2) /100WBC PT (10.8-13.0) SEC INR (0.9-1.1) APTT (24.1-38.0) SEC Sodium (135-145) mmol/L Potassium (3.3-5.1) mmol/L Chloride (96-108) mmol/L Carbon Dioxide (22-29) mmol/L Anion Gap (12-20) BUN (9-16) mg/dL Creatinine (0.5-1.4) mg/dL Estim Creat Clear Calc Estimated GFR Random Glucose (60-115) mg/dL Lactic Acid (0.5-2.0) mmol/L Calcium (8.4-10.2) mg/dL Magnesium (1.6-2.6) mg/dL Total Bilirubin (0.0-1.0) mg/dL Direct Bilirubin (0.0-0.5) mg/dL AST (5-31) U/L ALT (0-31) U/L Alkaline Phosphatase (39-117) U/L Total Creatine Kinase (26-140) U/L Troponin I High Sens 5.1 (<3.5-17.0) ng/L Total Protein (6.5-8.0) g/dL Albumin (3.5-5.0) g/dL Urine Color Urine Appearance Urine pH (5.0-8.0) Ur Specific [place] (1.005-1.025) Urine Protein (NEG-TRACE) MG/DL Urine Glucose (UA) (NEG) MG/DL Urine Ketones (NEG) MG/DL Urine Blood (NEG) Urine Nitrite (NEG) Ur Leukocyte Esterase (NEG) Urine RBC (0) /HPF Urine WBC (0-4) /HPF Ur Squamous Epith Cells /LPF Urine Bacteria /LPF Stool Occult Blood (NEG) Coronavirus (PCR) (Negative) Influenza Type A (PCR) (Negative) Influenza Type B (PCR) (Negative) RSV RNA Qual (PCR) (Negative) <Candy Brenna, [employer] APPLICATOR - Last Filed: 09/12/20 01:45> Lab Results 09/11/20 09/11/20 09/11/20 Range/Units 16:38 18:09 18:09 WBC 11.7 H (4.8-10.8) X10*3/uL RBC 4.38 (4.20-5.50) X10*6/uL Hgb 8.6 L (12.0-16.0) g/dl Hct 28.8 L (37-47) % MCV 65.8 L (80-98) fL MCH 19.6 L (27.0-33.0) pg MCHC 29.9 L (31.0-35.0) g/dl RDW 20.0 H (11.0-16.0) % Plt Count 339 (160-400) X10*3/uL MPV 10.1 (9.4-12.3) fL Immature Gran % (Auto) 0.3 (0.0-0.4) % Neut % (Auto) 80.0 H (45-73) % Lymph % (Auto) 11.7 L (20-40) % [place] % (Auto) 7.2 (2-11) % Eos % (Auto) 0.3 (0-4) % Baso % (Auto) 0.5 (0-2) % Lymph # (Auto) 1.4 (1.2-4.9) X10*3/uL [place] # (Auto) 0.9 (0.1-1.2) X10*3/uL Eos # (Auto) 0.0 (0.0-0.4) X10*3/uL Baso # (Auto) 0.1 (0.0-0.2) X10*3/uL Abs Immat Gran (auto) 0.03 (0.00-0.03) X10*3/uL Absolute Neuts (auto) 9.4 H (2.0-8.3) X10*3/uL Absolute Nucleated RBC 0.000 (0.0-0.012) X10*3/uL Nucleated RBC % (auto) 0.0 (0.0-0.2) /100WBC PT 13.1 H (10.8-13.0) SEC INR 1.1 (0.9-1.1) APTT 28.0 (24.1-38.0) SEC Sodium (135-145) mmol/L Potassium (3.3-5.1) mmol/L Chloride (96-108) mmol/L Carbon Dioxide (22-29) mmol/L Anion Gap (12-20) BUN (9-16) mg/dL Creatinine (0.5-1.4) mg/dL Estim Creat Clear Calc Estimated GFR Random Glucose (60-115) mg/dL Lactic Acid (0.5-2.0) mmol/L Calcium (8.4-10.2) mg/dL Magnesium (1.6-2.6) mg/dL Total Bilirubin (0.0-1.0) mg/dL Direct Bilirubin (0.0-0.5) mg/dL AST (5-31) U/L ALT (0-31) U/L Alkaline Phosphatase (39-117) U/L Total Creatine Kinase (26-140) U/L Troponin I High Sens (<3.5-17.0) ng/L Total Protein (6.5-8.0) g/dL Albumin (3.5-5.0) g/dL Urine Color Urine Appearance Urine pH (5.0-8.0) Ur Specific [place] (1.005-1.025) Urine Protein (NEG-TRACE) MG/DL Urine Glucose (UA) (NEG) MG/DL Urine Ketones (NEG) MG/DL Urine Blood (NEG) Urine Nitrite (NEG) Ur Leukocyte Esterase (NEG) Urine RBC (0) /HPF Urine WBC (0-4) /HPF Ur Squamous Epith Cells /LPF Urine Bacteria /LPF Stool Occult Blood (NEG) Coronavirus (PCR) NEGATIVE (Negative) Influenza Type A (PCR) NEGATIVE (Negative) Influenza Type B (PCR) NEGATIVE (Negative) RSV RNA Qual (PCR) NEGATIVE (Negative) 09/11/20 09/11/20 09/11/20 Range/Units 18:09 18:37 18:38 WBC (4.8-10.8) X10*3/uL RBC (4.20-5.50) X10*6/uL Hgb (12.0-16.0) g/dl Hct (37-47) % MCV (80-98) fL MCH (27.0-33.0) pg MCHC (31.0-35.0) g/dl RDW (11.0-16.0) % Plt Count (160-400) X10*3/uL MPV (9.4-12.3) fL Immature Gran % (Auto) (0.0-0.4) % Neut % (Auto) (45-73) % Lymph % (Auto) (20-40) % [place] % (Auto) (2-11) % Eos % (Auto) (0-4) % Baso % (Auto) (0-2) % Lymph # (Auto) (1.2-4.9) X10*3/uL [place] # (Auto) (0.1-1.2) X10*3/uL Eos # (Auto) (0.0-0.4) X10*3/uL Baso # (Auto) (0.0-0.2) X10*3/uL Abs Immat Gran (auto) (0.00-0.03) X10*3/uL Absolute Neuts (auto) (2.0-8.3) X10*3/uL Absolute Nucleated RBC (0.0-0.012) X10*3/uL Nucleated RBC % (auto) (0.0-0.2) /100WBC PT (10.8-13.0) SEC INR (0.9-1.1) APTT (24.1-38.0) SEC Sodium (135-145) mmol/L Potassium (3.3-5.1) mmol/L Chloride (96-108) mmol/L Carbon Dioxide (22-29) mmol/L Anion Gap (12-20) BUN (9-16) mg/dL Creatinine (0.5-1.4) mg/dL Estim Creat Clear Calc Estimated GFR Random Glucose (60-115) mg/dL Lactic Acid (0.5-2.0) mmol/L Calcium (8.4-10.2) mg/dL Magnesium (1.6-2.6) mg/dL Total Bilirubin (0.0-1.0) mg/dL Direct Bilirubin (0.0-0.5) mg/dL AST (5-31) U/L ALT (0-31) U/L Alkaline Phosphatase (39-117) U/L Total Creatine Kinase (26-140) U/L Troponin I High Sens < 3.5 (<3.5-17.0) ng/L Total Protein (6.5-8.0) g/dL Albumin (3.5-5.0) g/dL Urine Color YELLOW Urine Appearance CLEAR Urine pH 6.0 (5.0-8.0) Ur Specific [place] 1.020 (1.005-1.025) Urine Protein NEG (NEG-TRACE) MG/DL Urine Glucose (UA) NEG (NEG) MG/DL Urine Ketones 15 (NEG) MG/DL Urine Blood NEG (NEG) Urine Nitrite NEG (NEG) Ur Leukocyte Esterase TRACE H (NEG) Urine RBC 0-2 (0) /HPF Urine WBC 1-4 (0-4) /HPF Ur Squamous Epith Cells 1+ /LPF Urine Bacteria 1+ /LPF Stool Occult Blood NEG (NEG) Coronavirus (PCR) (Negative) Influenza Type A (PCR) (Negative) Influenza Type B (PCR) (Negative) RSV RNA Qual (PCR) (Negative) 09/11/20 09/11/20 09/11/20 Range/Units 20:42 20:43 23:57 WBC (4.8-10.8) X10*3/uL RBC (4.20-5.50) X10*6/uL Hgb (12.0-16.0) g/dl Hct (37-47) % MCV (80-98) fL MCH (27.0-33.0) pg MCHC (31.0-35.0) g/dl RDW (11.0-16.0) % Plt Count (160-400) X10*3/uL MPV (9.4-12.3) fL Immature Gran % (Auto) (0.0-0.4) % Neut % (Auto) (45-73) % Lymph % (Auto) (20-40) % [place] % (Auto) (2-11) % Eos % (Auto) (0-4) % Baso % (Auto) (0-2) % Lymph # (Auto) (1.2-4.9) X10*3/uL [place] # (Auto) (0.1-1.2) X10*3/uL Eos # (Auto) (0.0-0.4) X10*3/uL Baso # (Auto) (0.0-0.2) X10*3/uL Abs Immat Gran (auto) (0.00-0.03) X10*3/uL Absolute Neuts (auto) (2.0-8.3) X10*3/uL Absolute Nucleated RBC (0.0-0.012) X10*3/uL Nucleated RBC % (auto) (0.0-0.2) /100WBC PT (10.8-13.0) SEC INR (0.9-1.1) APTT (24.1-38.0) SEC Sodium 136 (135-145) mmol/L Potassium 3.4 (3.3-5.1) mmol/L Chloride 105 (96-108) mmol/L Carbon Dioxide 23 (22-29) mmol/L Anion Gap 11 L (12-20) BUN 13 (9-16) mg/dL Creatinine 0.77 (0.5-1.4) mg/dL Estim Creat Clear Calc 46.9 Estimated GFR > 60 Random Glucose 100 (60-115) mg/dL Lactic Acid 0.9 (0.5-2.0) mmol/L Calcium 8.8 (8.4-10.2) mg/dL Magnesium 2.0 (1.6-2.6) mg/dL Total Bilirubin 0.5 (0.0-1.0) mg/dL Direct Bilirubin 0.3 (0.0-0.5) mg/dL AST 19 (5-31) U/L ALT 10 (0-31) U/L Alkaline Phosphatase 79 (39-117) U/L Total Creatine Kinase 39 (26-140) U/L Troponin I High Sens 4.1 (<3.5-17.0) ng/L Total Protein 6.5 (6.5-8.0) g/dL Albumin 3.7 (3.5-5.0) g/dL Urine Color Urine Appearance Urine pH (5.0-8.0) Ur Specific [place] (1.005-1.025) Urine Protein (NEG-TRACE) MG/DL Urine Glucose (UA) (NEG) MG/DL Urine Ketones (NEG) MG/DL Urine Blood (NEG) Urine Nitrite (NEG) Ur Leukocyte Esterase (NEG) Urine RBC (0) /HPF Urine WBC (0-4) /HPF Ur Squamous Epith Cells /LPF Urine Bacteria /LPF Stool Occult Blood (NEG) Coronavirus (PCR) (Negative) Influenza Type A (PCR) (Negative) Influenza Type B (PCR) (Negative) RSV RNA Qual (PCR) (Negative) 09/12/20 09/12/20 Range/Units 04:20 04:20 WBC (4.8-10.8) X10*3/uL RBC (4.20-5.50) X10*6/uL Hgb 7.9 L (12.0-16.0) g/dl Hct 27.0 L (37-47) % MCV (80-98) fL MCH (27.0-33.0) pg MCHC (31.0-35.0) g/dl RDW (11.0-16.0) % Plt Count (160-400) X10*3/uL MPV (9.4-12.3) fL Immature Gran % (Auto) (0.0-0.4) % Neut % (Auto) (45-73) % Lymph % (Auto) (20-40) % [place] % (Auto) (2-11) % Eos % (Auto) (0-4) % Baso % (Auto) (0-2) % Lymph # (Auto) (1.2-4.9) X10*3/uL [place] # (Auto) (0.1-1.2) X10*3/uL Eos # (Auto) (0.0-0.4) X10*3/uL Baso # (Auto) (0.0-0.2) X10*3/uL Abs Immat Gran (auto) (0.00-0.03) X10*3/uL Absolute Neuts (auto) (2.0-8.3) X10*3/uL Absolute Nucleated RBC (0.0-0.012) X10*3/uL Nucleated RBC % (auto) (0.0-0.2) /100WBC PT (10.8-13.0) SEC INR (0.9-1.1) APTT (24.1-38.0) SEC Sodium (135-145) mmol/L Potassium (3.3-5.1) mmol/L Chloride (96-108) mmol/L Carbon Dioxide (22-29) mmol/L Anion Gap (12-20) BUN (9-16) mg/dL Creatinine (0.5-1.4) mg/dL Estim Creat Clear Calc Estimated GFR Random Glucose (60-115) mg/dL Lactic Acid (0.5-2.0) mmol/L Calcium (8.4-10.2) mg/dL Magnesium (1.6-2.6) mg/dL Total Bilirubin (0.0-1.0) mg/dL Direct Bilirubin (0.0-0.5) mg/dL AST (5-31) U/L ALT (0-31) U/L Alkaline Phosphatase (39-117) U/L Total Creatine Kinase (26-140) U/L Troponin I High Sens 5.1 (<3.5-17.0) ng/L Total Protein (6.5-8.0) g/dL Albumin (3.5-5.0) g/dL Urine Color Urine Appearance Urine pH (5.0-8.0) Ur Specific [place] (1.005-1.025) Urine Protein (NEG-TRACE) MG/DL Urine Glucose (UA) (NEG) MG/DL Urine Ketones (NEG) MG/DL Urine Blood (NEG) Urine Nitrite (NEG) Ur Leukocyte Esterase (NEG) Urine RBC (0) /HPF Urine WBC (0-4) /HPF Ur Squamous Epith Cells /LPF Urine Bacteria /LPF Stool Occult Blood (NEG) Coronavirus (PCR) (Negative) Influenza Type A (PCR) (Negative) Influenza Type B (PCR) (Negative) RSV RNA Qual (PCR) (Negative) <Lincoln Mcfarland MD - Last Filed: 09/12/20 05:02> Imaging Data CT head cervical spine: Attestation: I personally reviewed and interpreted this imaging study as follows: <Gisel Ceja NP - Last Filed: 09/12/20 01:45> Radiologist's impression: EXAMINATION: CT BRAIN AND CT CERVICAL SPINE. CLINICAL INFORMATION: Fall, dementia. COMPARISON: None TECHNIQUE: 5 mm thin axial and reformatted 2 mm thin coronal and sagittal images of brain were obtained without contrast. Axial 3 mm thin and reformatted 2 mm thin sagittal and coronal images of brain were obtained. DLP 833 FINDINGS: Brain: There is no acute intra-axial, extra-axial bleed, masses or midline shift. There is no acute infarction in evolution. The lateral ventricles are symmetrical in size and configuration without enlargement. [place] to white matter differentiation is maintained normal. There is atherosclerotic calcification of bilateral internal carotid, vertebral and basilar arteries. Bone windows reveal no calvarial abnormality. There is no scalp soft tissue abnormality. Bilateral paranasal sinuses and mastoid air cells are well-aerated. Cervical spine: There is normal cervical lordosis. The vertebral heights are normal. There is grade 1 anterolisthesis C4 over C5. Rest of the vertebral alignment is preserved. There is moderate loss of disc height, posterior spondylosis and vacuum disc phenomena at the C6-C7 disc level. Minimal loss of C3-C4 disc height is noted. The craniovertebral junction appears normal. The C1-C2 alignment is normal. There is mild to moderate right C2-C3 moderate to significant left C4-C5 facet joint arthropathy. Craniovertebral junction and C1-C2 alignment is normal. There is a small bone island in sclerotic left C1 lateral mass. No visible acute acute fracture, dislocation or subluxation seen. The paravertebral soft tissues are normal. No lytic process seen. Mild scarring is seen in both lung apices. CT/CT cervical spine wo con IMPRESSION: No acute intracranial process seen. Age-related cerebral volume loss with atherosclerotic vascular calcification. There is no acute fracture, dislocation. There is grade 1 anterolisthesis C4 over C5 with significant degenerative disc changes and vacuum disc phenomena at C6-C7 disc level. <Gisel Ceja NP - Last Filed: 09/12/20 01:45> CT chest abdomen pelvis: Attestation: I personally reviewed and interpreted this imaging study as follows: <Gisel Ceja NP - Last Filed: 09/12/20 01:45> Radiologist's impression: EXAMINATION: CT CHEST, ABDOMEN AND PELVIS WITHOUT CONTRAST CLINICAL INFORMATION: Reason for Exam unwitnessed falls COMPARISON: No pertinent prior studies are available for comparison. TECHNIQUE: Multidetector volumetric imaging was performed from the thoracic inlet through the pubic symphysis without IV contrast. Sagittal and coronal reformatted images were obtained on the technologist's workstation. This CT examination was performed using dose optimization techniques as appropriate, variously including the following: *Automated exposure control *Adjustment of mA and/or kV according to patient size (this includes techniques or standardized protocols for targeted exams where dose is matched to indication/reason for exam; i.e. extremities or head) *Use of iterative reconstruction technique DLP: 517 mGy-cm FINDINGS: CHEST: Lung: Atelectasis is present. At the lung bases. Mediastinum: Heart size is normal. Extensive coronary artery calcifications are present. No mediastinal hematoma is seen. Pericardium/Pleura: No significant effusion. No pleural mass or thickening. No pneumothorax is present. Chest Wall/Axilla: No chest wall injury. No rib fractures seen. An chronic appearing compression fracture noted in T12. Degenerative changes noted through the rest of the thoracic spine a hemangioma is present in the T4 vertebral body. ABDOMEN/PELVIS: Peritoneal Space: No significant free air or free fluid identified. Liver, Gallbladder, Biliary Tree: The liver is normal in size, shape, and attenuation. No focal hepatic lesion or biliary ductal dilatation is present. The gallbladder is unremarkable with no evidence of radiopaque gallstones, gallbladder wall thickening, or obvious pericholecystic inflammatory changes. Pancreas: Unremarkable Spleen: Unremarkable Adrenal Glands: Unremarkable Kidneys and Ureters: The kidneys are normal in size, shape, and attenuation. No hydronephrosis, hydroureter, or calculi seen. No perinephric stranding. Bladder: Bladder is nearly empty but unremarkable. Gastrointestinal Tract: Large hiatal hernia is present with most of the stomach within the chest. Extensive colonic diverticular changes are present especially in the sigmoid. No convincing evidence of diverticulitis. The small bowel is unremarkable. The appendix is unremarkable. Abdominal Wall: No significant hernia is appreciated. Lymph Nodes: No retroperitoneal lymphadenopathy seen. Vascular: Calcific atherosclerotic changes present in the aorta and its branches. The IVC appears unremarkable. PELVIC VISCERA: Free fluid is present in the pelvis. This is greater density and not blood density. There is a rounded 7.7 x 4.3 x 4.5 cm fluid density mass in the left adnexa which may represent a left ovarian cyst. A small retroflexed uterus appears to be present. No right adnexal mass is seen. OSSEUS STRUCTURES: Marked osteopenia and degenerative changes with multiple probably chronic compression fractures involving L4 L3 and L2 L1 and T12. Marked degenerative changes present in both hips. No hip CT/CT chest wo con fracture seen. IMPRESSION: No evidence of an acute traumatic injury. Incidental note made of: 1. Extensive coronary disease 2. Multiple vertebral compression fractures and marked degenerative changes in both hips 3. Large hiatal hernia with much of the stomach within the chest 4. Extensive colonic diverticular disease without diverticulitis 5. Large left ovarian cyst which is not normal for patient of 85 years of age. Recommend follow-up ultrasound in 3-6 months <Gisel Ceja NP - Last Filed: 09/12/20 01:45> ECG Data ECG #1: Attestation: I personally reviewed and interpreted this ECG as follows: <Gisel Ceja NP - Last Filed: 09/12/20 01:45> ECG interpretation date: 09/11/20 <Gisel Ceja NP - Last Filed: 09/12/20 01:45> ECG interpretation time: 16:27 <Gisel Ceja NP - Last Filed: 09/12/20 01:45> Prior ECG tracings: not available for review <Gisel Ceja NP - Last Filed: 09/12/20 01:45> Interpretation: Vent. rate 80 BPM AL interval 166 ms QRS duration 86 ms QT/QTc 368/424 ms P-R-T axes 83 7 36 Normal sinus rhythm Normal ECG No previous ECGs available <Gisel Ceja NP - Last Filed: 09/12/20 01:45> Discharge Plan Discharge Clinical Impression: Weakness <LEAH Ramsey - Last Filed: 09/11/20 16:41> Prescriptions: No Action atorvastatin 40 mg tablet 40 mg PO DAILY Qty: 90 RF: 2 levothyroxine 50 mcg tablet 50 mcg PO DAILY Qty: 90 RF: 1 lisinopril-hydrochlorothiazide 10-12.5 mg Tablet 1 tab PO DAILY RF: 0 Centrum Silver 0.4-300-250 mg-mcg-mcg tablet 1 tab PO DAILY RF: 0 <LEAH Ramsey Last Filed: 09/11/20 16:41>
--- NOTE | 2020-09-11 15:42 | ECG_ITS ---
Test Reason : CHEST PAIN Blood Pressure : / mmHG Vent. Rate : 080 BPM Atrial Rate : 080 BPM P-R Int : 166 ms QRS Dur : 086 ms QT Int : 368 ms P-R-T Axes : 083 007 036 degrees QTc Int : 424 ms Normal sinus rhythm Normal ECG No previous ECGs available Referred By: Kymberly Fatima Electronically Signed By:RACHAEL REEVES
--- NOTE | 2020-09-11 16:00 | PC.NURSE ---
pt returned from radiology
[2020-09-11 17:31] LABS: Influenza A PCR NEGATIVE (Negative); Influenza B PCR NEGATIVE (Negative); Resp Syncy Virus RNA Qual PCR NEGATIVE (Negative); SARS COV2 PCR INHOUSE NEGATIVE (Negative)
[2020-09-11 18:16] LABS: MANUAL DIFF FLAG NO
[2020-09-11 18:17] LABS: Basophils Absolute Auto 0.1 X10*3/uL (0.0-0.2); Basophils Percent Auto 0.5 % (0-2); Eosinophils Percent Auto 0.3 % (0-4); Hematocrit 28.8 % (37-47); Hemoglobin 8.6 g/dl (12.0-16.0); Imm Gran Abs Auto 0.03 X10*3/uL (0.00-0.03); Imm Gran Pct Auto 0.3 % (0.0-0.4); Lymphocytes Absolute Auto 1.4 X10*3/uL (1.2-4.9); Lymphocytes Percent Auto 11.7 % (20-40); Mean Corpuscular HGB Conc 29.9 g/dl (31.0-35.0); Mean Corpuscular Hemoglobin 19.6 pg (27.0-33.0); Mean Corpuscular Volume 65.8 fL (80-98); Mean Platelet Volume 10.1 fL (9.4-12.3); Monocytes Absolute Auto 0.9 X10*3/uL (0.1-1.2); Monocytes Percent Auto 7.2 % (2-11); Neutrophils Absolute Auto 9.4 X10*3/uL (2.0-8.3); Platelet Count 339 X10*3/uL (160-400); Red Blood Count 4.38 X10*6/uL (4.20-5.50); White Blood Count 11.7 X10*3/uL (4.8-10.8)
[2020-09-11 18:25] LABS: INTERNATIONAL NORM RATIO 1.1 (0.9-1.1); Prothrombin Time 13.1 SEC (10.8-13.0)
[2020-09-11 18:48] LABS: OBS1 NEG (NEG)
[2020-09-11 18:48] LABS: Glucose Urine UA NEG (NEG); Leukocyte Esterase Urine TRACE (NEG); Nitrite Urine NEG (NEG); UACC Culture Trigger YES; Urine Blood NEG (NEG); Urine Ketones 15 MG/DL (NEG); Urine Protein NEG (NEG-TRACE)
--- NOTE | 2020-09-11 18:48 | PC.NURSE ---
urine obtained, this nurse assisted provider with rectal exam
[2020-09-11 18:49] LABS: Appearance Urine CLEAR; Color Urine YELLOW
[2020-09-11 18:49] LABS: OBS Int Ctl Valid YES
[2020-09-11 18:49] LABS: Troponin-I High Sensitivity < 3.5 ng/L (<3.5-17.0)
[2020-09-11 18:55] LABS: Bacteria Urine 1+ /LPF; RBC Urine 0-2 /HPF (0); Squamous Epithelial Cell Urine 1+ /LPF
--- NOTE | 2020-09-11 19:39 | PC.NURSE ---
Daughter cristina spoke with mother on the phone and spoke with this nurse after, Cristina stated that her mother told her that she was outside this morning and had fallen on the way to the mailbox. The patient had stated previously to this nurse that she had fallen weeks ago and not anything recent. The patient also told her daughter her chest pressure has increased. Daughter wishes for provider to call her with an update once tests are back.
[2020-09-11] MEDS: 0.9 % Sodium Chloride 1,000 ML 999 ML IVCONT (20:03)
--- NOTE | 2020-09-11 20:08 | PC.NURSE ---
ivf started per order, tech to draw labs as this nurse was unable to get the labs.
[2020-09-11] MEDS: cefTRIAXone sodium 1 GM in 0.9 % Sodium Chloride 50 ML IV (21:05)
[2020-09-11 21:11] LABS: Lactic Acid 0.9 mmol/L (0.5-2.0)
[2020-09-11 21:15] LABS: Alanine Aminotransferase 10 U/L (0-31); Albumin Level 3.7 g/dL (3.5-5.0); Alkaline Phosphatase 79 U/L (39-117); Anion Gap 11 (12-20); Aspartate Amino Transferase 19 U/L (5-31); Bilirubin Direct 0.3 mg/dL (0.0-0.5); Bilirubin Total 0.5 mg/dL (0.0-1.0); Blood Urea Nitrogen 13 mg/dL (9-16); Calcium 8.8 mg/dL (8.4-10.2); Carbon Dioxide 23 mmol/L (22-29); Chloride 105 mmol/L (96-108); Creatinine Clr Calc Pharmacy 46.9; Estimated Glomerular Filt Rate > 60; Glucose Random 100 mg/dL (60-115); Potassium 3.4 mmol/L (3.3-5.1); Sodium 136 mmol/L (135-145); Total Protein 6.5 g/dL (6.5-8.0)
--- NOTE | 2020-09-11 23:07 | MHC.CM.ED ---
CM met with pt. Pt has undiagnosed dementia per daughter and has difficulty with time and some recall. Pt tell CM she has some trouble with recall, but lives alone. Pt states her family helps her, shops for her, provides transportation. Pt tells me see does her own laundry and cooking. She prides herself on living independently. Pt manages her own medications. When you speak with pt, she is slow to recall and find words, but can make her wishes known. Pt is very well kept and tells CM she showers herself and can get in and out of the shower. States she has felt a bit weak and thinks she may have fallen when getting her mail. H&H 8.6/28.8. She has a cane, which she basically uses outside. She has no services. She is agreeable to a PT evaluation in the am. She does not feel she needs rehab. CM spoke to her daughter, Telma ([phone]) who is the contact lens blocker for the family. Per Telma, her mother does not have a HCP. Telma tells CM that her brother checks in on her mother daily and she and her sister see her several days a week. Discussed cooking, meal preparation, laundry and medication preparation. States that most of her food can be prepared in a toaster oven. Expressed concerns about pt recall and that using stove may be concerning. :Laundry is in the basement and daughter agrees that pt should stop that activity. Daughter deals with pt. finances for her. States mother has been able to manage her own medications. Over-all sounds like family is doing a good job helping pt to live an independent life. Discussed [facility] and meal on wheels. Daughter thinks she may qualify for services. Plan: PT eval in am and recommendations Call daughter, Telma, who will review findings with siblings Pt may not be agreeable to STR, but may be agreeable to [facility]. Will need HCP completed. No referrals placed at this time. CM to follow for d/c needs.
[2020-09-12 00:33] LABS: Troponin-I High Sensitivity 4.1 ng/L (<3.5-17.0)
--- NOTE | 2020-09-12 00:33 | PC.NURSE ---
patient resting comfortably on stretcher, no distress noted. met with case management, plan is to have a PT evaluation in the am. plan will be for patient to return home if PT clears her. family has additional services being set up for help at home.
[2020-09-12 03:50] VITALS: BP 162/67; PULSE 76; RESP 20; O2SAT 98
[2020-09-12 04:29] LABS: Hemoglobin 7.9 g/dl (12.0-16.0)
[2020-09-12 04:50] LABS: Troponin-I High Sensitivity 5.1 ng/L (<3.5-17.0)
[2020-09-12 05:55] VITALS: BP 159/80; PULSE 73; RESP 19; O2SAT 98
[2020-09-12 07:09] VITALS: BP 147/74; PULSE 79; RESP 20; O2SAT 99
--- NOTE | 2020-09-12 07:51 | PC.NURSE ---
Pt is awake, alert, rr even, speaks in full sentences, skin is pwdi, and she is in nad. She c/o of improving 5/10 chest discomfort. Currently eating breakfast. Awaiting PT eval for possible dc home with services.
[2020-09-12 08:09] VITALS: BP 150/74; PULSE 89
[2020-09-12] MEDS: Levothyroxine Sodium 50 MCG TABLET PO (08:09)
[2020-09-12] MEDS: Atorvastatin Calcium 40 MG TABLET PO (08:10)
[2020-09-12] MEDS: hydroCHLOROthiazide 12.5 MG TABLET PO (08:10)
[2020-09-12 09:08] VITALS: BP 134/68; PULSE 92
--- NOTE | 2020-09-12 11:20 | PC.NURSE ---
lg bm x 1. aware.
--- NOTE | 2020-09-12 11:46 | MHC.CM.PN ---
CM MET WITH PT AND SHE IS AGREEABLE TO HOME SERVICES, [facility] UNABLE TO START UNTIL OR WED THIS WEEK SO PT WILL D/C WITH [facility] FOR [facility] AND HOME OT/PT, DAUGHTER MARIA DE JESUS TO TRANSPORT, PT ALSO COMPLETED HCP W/CM AND NAMED HER SON KSENIA BRINK HER HEALTHCARE AGENT AND DAUGHTER MARIA DE JESUS LEWIS HER ALTERNATE, CM DID CONTACT PT'S DAUGHTER MARIA DE JESUS AT 11:30AM TO UPDATE HER ON PLAN AND TO LET HER KNOW PT IS READY FOR D/C. HCP: KSENIA BRINK (SON) work-[phone], CELL [phone] ALTERNATE: MARIA DE JESUS LEWIS (DAUGHTER) [phone]
== END 2020-09-12 12:03 | disposition home or self-care (01) ==
PROVIDERS: Nurse Practitioner Family; Physician Assistant; Emergency Provider Emergency Medicine Emergency Medical Services; PCP Internal Medicine
DX: R53.1 Weakness (principal); R07.9 Chest pain, unspecified; Z20.822 Contact with and (suspected) exposure to COVID-19; Z91.81 History of falling; I10 Essential (primary) hypertension; F03.90 Unspecified dementia, unspecified severity, without behavioral disturbance, psychotic disturbance, mood disturbance, and anxiety; E78.5 Hyperlipidemia, unspecified; Z87.891 Personal history of nicotine dependence
CPT/HCPCS: 0241U; 36415; 51701; 70450; 71250; 72125; 74176; 80048; 80076; 81001; 81003; 82272; 82550; 83605; 83735; 84484; 85014; 85018; 85025; 85610; 85730; 87040; 87086; 93005; 96361; 96365; 97161; 99285; J0696

== ENCOUNTER 2022-05-03 06:00 | Outpatient (REF) | payer MEDICARE, SELFPAY ==
[2022-04-29 10:09] LABS: MANUAL DIFF FLAG NO
[2022-04-29 10:22] LABS: Basophils Absolute Auto 0.1 X10*3/uL (0.0-0.2); Basophils Percent Auto 1.5 % (0-2); Eosinophils Absolute Auto 0.1 X10*3/uL (0.0-0.4); Eosinophils Percent Auto 1.7 % (0-4); Imm Gran Abs Auto 0.02 X10*3/uL (0.00-0.03); Imm Gran Pct Auto 0.4 % (0.0-0.4); Lymphocytes Absolute Auto 1.7 X10*3/uL (1.2-4.9); Lymphocytes Percent Auto 31.1 % (20-40); Mean Corpuscular HGB Conc 32.5 g/dl (31.0-35.0); Mean Corpuscular Hemoglobin 28.5 pg (27.0-33.0); Mean Corpuscular Volume 87.7 fL (80.0-98.0); Mean Platelet Volume 11.6 fL (9.4-12.3); Monocytes Absolute Auto 0.5 X10*3/uL (0.1-1.2); Monocytes Percent Auto 9.8 % (2-11); Neutrophils Absolute Auto 2.9 x10*3/uL (2.0-8.3); Neutrophils Percent Auto 55.5 % (45-73); Platelet Count 212 X10*3/uL (160-400); Red Blood Count 4.56 X10*6/uL (4.20-5.50); Red Cell Distribution Width 14.5 % (11.0-16.0); White Blood Count 5.3 X10*3/uL (4.8-10.8)
[2022-04-29 10:39] LABS: Alanine Aminotransferase 24 U/L (0-31); Albumin Level 3.8 g/dL (3.5-5.0); Alkaline Phosphatase 82 U/L (39-117); Anion Gap 14 (12-20); Aspartate Amino Transferase 37 U/L (5-31); Bilirubin Total 0.7 mg/dL (0.0-1.0); Blood Urea Nitrogen 18 mg/dL (9-16); Calcium 9.2 mg/dL (8.4-10.2); Carbon Dioxide 25 mmol/L (22-29); Chloride 104 mmol/L (96-108); Cholesterol 143 mg/dL; Estimated Glomerular Filt Rate > 60; Glucose Fasting 96 mg/dL (60-99); HDL Cholesterol 58 mg/dL; LDL Cholesterol Calculated 73 mg/dl; Potassium 4.4 mmol/L (3.3-5.1); Sodium 139 mmol/L (135-145); Triglycerides 60 mg/dL
[2022-04-29 11:01] LABS: Free T4 (Free Thyroxine) 1.24 ng/dL (0.71-1.85); Thyroid Stimulating Hormone 2.32 uIU/mL (0.32-4.0); Vitamin D 25-OH Total 17.7 ng/mL (>30)
== END 2022-05-03 06:01 | disposition home or self-care (01) ==
LOC: HO.LHD 06:00
PROVIDERS: Visit Provider Internal Medicine
DX: N95.1 Menopausal and female climacteric states (principal); M85.80 Other specified disorders of bone density and structure, unspecified site; E78.5 Hyperlipidemia, unspecified; E03.9 Hypothyroidism, unspecified; I10 Essential (primary) hypertension
CPT/HCPCS: 36415; 80053; 80061; 82306; 84439; 84443; 85025

== ENCOUNTER 2022-10-27 06:51 | Outpatient (REF) | payer MEDICARE, SELFPAY ==
[2022-10-27 09:45] LABS: MANUAL DIFF FLAG NO
[2022-10-27 09:48] LABS: Basophils Absolute Auto 0.1 X10*3/uL (0.0-0.2); Basophils Percent Auto 1.5 % (0-2); Eosinophils Absolute Auto 0.2 X10*3/uL (0.0-0.4); Eosinophils Percent Auto 3.7 % (0-4); Hematocrit 39.7 % (37.0-47.0); Hemoglobin 12.5 g/dl (12.0-16.0); Imm Gran Abs Auto 0.01 X10*3/uL (0.00-0.03); Imm Gran Pct Auto 0.2 % (0.0-0.4); Lymphocytes Absolute Auto 1.9 X10*3/uL (1.2-4.9); Lymphocytes Percent Auto 35.5 % (20-40); Mean Corpuscular HGB Conc 31.5 g/dl (31.0-35.0); Mean Corpuscular Hemoglobin 27.4 pg (27.0-33.0); Mean Corpuscular Volume 87.1 fL (80.0-98.0); Mean Platelet Volume 11.5 fL (9.4-12.3); Monocytes Absolute Auto 0.6 X10*3/uL (0.1-1.2); Monocytes Percent Auto 10.1 % (2-11); Neutrophils Absolute Auto 2.7 x10*3/uL (2.0-8.3); Platelet Count 211 X10*3/uL (160-400); Red Blood Count 4.56 X10*6/uL (4.20-5.50); Red Cell Distribution Width 15.4 % (11.0-16.0); White Blood Count 5.4 X10*3/uL (4.8-10.8)
[2022-10-27 10:53] LABS: Alanine Aminotransferase 13 U/L (0-31); Albumin Level 3.4 g/dL (3.5-5.0); Alkaline Phosphatase 122 U/L (39-117); Anion Gap 11 (12-20); Aspartate Amino Transferase 20 U/L (5-31); Bilirubin Total 0.6 mg/dL (0.0-1.0); Blood Urea Nitrogen 9 mg/dL (9-16); Calcium 8.8 mg/dL (8.4-10.2); Carbon Dioxide 25 mmol/L (22-29); Chloride 111 mmol/L (96-108); Cholesterol 135 mg/dL; Estimated Glomerular Filt Rate > 60; Glucose Fasting 93 mg/dL (60-99); HDL Cholesterol 49 mg/dL; LDL Cholesterol Calculated 75 mg/dl; Potassium 4.5 mmol/L (3.3-5.1); Sodium 142 mmol/L (135-145); Total Protein 6.1 g/dL (6.5-8.0); Triglycerides 55 mg/dL
[2022-10-27 11:15] LABS: Free T4 (Free Thyroxine) 1.17 ng/dL (0.71-1.85); Thyroid Stimulating Hormone 4.58 uIU/mL (0.32-4.0); Vitamin D 25-OH Total 66.2 ng/mL (>30)
== END 2022-10-27 06:52 | disposition home or self-care (01) ==
LOC: HO.LHD 06:51
PROVIDERS: Visit Provider Internal Medicine
DX: E03.9 Hypothyroidism, unspecified (principal); E78.5 Hyperlipidemia, unspecified; N95.1 Menopausal and female climacteric states; M85.80 Other specified disorders of bone density and structure, unspecified site; I10 Essential (primary) hypertension
CPT/HCPCS: 36415; 80053; 80061; 82306; 84439; 84443; 85025

== ENCOUNTER 2023-04-21 06:24 | Outpatient (REF) | payer MEDICARE, SELFPAY | END 2023-04-21 06:25 | disposition home or self-care (01) | LOC: HO.LHD 06:24 | PROVIDERS: Visit Provider Internal Medicine | DX: Z13.89 Encounter for screening for other disorder (principal) ==

== ENCOUNTER 2023-04-25 07:46 | Outpatient (REF) | payer MEDICARE, SELFPAY ==
[2023-04-25 11:36] LABS: Alanine Aminotransferase 9 U/L (0-31); Anion Gap 13 (12-20); Aspartate Amino Transferase 17 U/L (5-31); Blood Urea Nitrogen 12 mg/dL (9-16); Carbon Dioxide 23 mmol/L (22-29); Chloride 107 mmol/L (96-108); Cholesterol 188 mg/dL (<200); Estimated Glomerular Filt Rate > 60; Glucose Fasting 133 mg/dL (60-99); HDL Cholesterol 56 mg/dL (>40); LDL Cholesterol Calculated 116 mg/dL (<100); Potassium 3.7 mmol/L (3.3-5.1); Sodium 139 mmol/L (135-145); Triglycerides 80 mg/dL (<150)
[2023-04-25 11:50] LABS: Vitamin D 25-OH Total 58.9 ng/mL (>30)
[2023-04-25 12:05] LABS: Folate 6.1 ng/mL (> or = 4.0); Vitamin B12 235 pg/mL (200-900)
== END 2023-04-25 07:47 | disposition home or self-care (01) ==
LOC: HO.LHD 07:46
PROVIDERS: Visit Provider Internal Medicine
DX: N95.1 Menopausal and female climacteric states (principal); M85.80 Other specified disorders of bone density and structure, unspecified site; E78.5 Hyperlipidemia, unspecified; E03.9 Hypothyroidism, unspecified; I10 Essential (primary) hypertension
CPT/HCPCS: 36415; 80048; 80061; 82306; 82607; 82746; 84443; 84450; 84460

== ENCOUNTER 2023-08-16 07:11 | Outpatient (REF) | payer MEDICARE, SELFPAY | END 2023-08-16 07:12 | disposition home or self-care (01) | LOC: HO.LHD 07:11 | PROVIDERS: Visit Provider Internal Medicine | DX: Z13.89 Encounter for screening for other disorder (principal) ==

== ENCOUNTER 2025-03-07 08:26 | Outpatient (AMB) | payer MEDICARE, SELFPAY ==
--- NOTE | 2025-03-07 09:16 | A.OFFPC_ITS ---
Intake Visit Reasons: hospital bed, general health Intake Note: call patients daughter Telma, at [phone] (iphone) Allergies No Known Allergies Allergy (Verified 03/07/25 09:27) Medication List - Last Reconciled 03/07/25 by Lyudmila Thompson MD No Known Home Meds Tobacco use date assessed: 03/07/25 Fall risk assessment: No Falls in past year Last assessed Fall Risk: 03/07/25 Dental Screening Dental Screen Date: 03/07/25 Did you have a dental visit in the last 12 months?: No Did you have a dental problem in the last 6 months where you did not have access to dental care?: No Was dental information given to patient?: Patient declined HPI hospital bed, general health HPI Details - 89-year-old female with history of hyp ertension and hypothyroidism, dementia, dyslipidemia, not on any medications at present time, recently today via telehealth accompanied by daughter who requests referral for hospice care . As per patient's daughter, patient does not want totake any medications , or having tests done.. She is bed ridden, has a hard time getting, needs help with ADLs. She had somebody from [employer] assisting in patient's care but had a hard time moving patient , as they had to move her mattress to the floor .- has had several episodes of sliding off the bed, prompting her daughter to please the mattress on the floor - She experiences soreness on her right side when turned - Marlen is able to eat with assistance, unable to get up and walk due to generalized weakness - She requires a hospital bed with bed r ails, with the ability to adjust head of bed, as she needs assistance in repositioning herself on bed [facility] Medical History (Updated 03/07/25 @ 09:40 by Lyudmila Thompson MD) Dementia Menopause syndrome Squamous cell carcinoma Osteopenia Dyslipidemia Acquired hypothyroidism Mammogram declined Vaccination refused by patient Influenza vaccination declined Essential hypertension Family History Sister Brain cancer Social History Housing: House Alcohol intake: never Patient Tobacco Use Status: Former Tobacco user e-Cigarette/Vaping Use: Never Used Current occupational status: disabled Cognitive needs: No Hearing needs: No Vision needs: Yes Questionnaire PHQ-9 Over the last 2 weeks, how often have you been bothered by any of the following problems? 24682 - PHQ-9 Billing: Patient declined-do not bill Source: Developed by Drs. Jean Marie, Sindy Collazo, Hans Hays and colleagues, with an educational estela from [employer]. Thrive Questionnaire Date Thrive assessed: 03/07/25 I am a: Patient What is your living situation today?: I choose not to answer this question Within the past 12 months, did the food you bought not last and you didn't have the money to get more?: I choose not to answer this question Within the past 12 months, did you worry whether your food would run out before you got money to buy more?: I choose not to answer this question Do you have trouble paying for medicines?: I choose not to answer this question Do you have trouble getting transportation to medical appointments?: I choose not to answer this question Do you have trouble paying your heating and electricity bill?: I choose not to answer this question Do you have trouble taking care of your child, family member or friend?: I choose not to answer this question Do you have trouble with day-to-day activities such as bathing, preparing meals, shopping, managing finances, etc.?: I choose not to answer this question Are you currently unemployed and looking for a job?: I choose not to answer this question Are you interested in more education?: I choose not to answer this question Please select the resources that you would like help with: None Currently or been in a relationship where the following occur: I choose not to answer THRIVE Score: 0 AUDIT C Alcohol Use Questionnaire (AUDIT-C) 1. How often do you have a drink containing alcohol?: Never 3. How often do you have six or more drinks on one occasion?: Never Total Score: 0 Score Reviewed/Action Taken: Yes JUSTICE-7 AMB Questionnaire JUSTICE-7 Date JUSTICE - 7 assessed: 03/07/25 (patient declined) Source: Developed by Drs. Jean Marie, Sindy Collazo, Hans Hays and colleagues, with an educational estela from [employer]. Review of Systems Const Reports as per HPI, Denies fever(s) and Reports lethargy ENT Reports no additional complaints Card Reports no additional complaints Resp Reports no additional complaints GI Reports as per HPI Reports urinary incontinence Musc Reports muscle weakness Neuro Reports as per HPI Luther/Lymph Reports no additional complaints Physical exam (Primary Care) Tobacco/Smoking Status: Tobacco use Status Tobacco use date assessed 03/07/25 03/07/25 09:19 Patient Tobacco Use Status Former Tobacco user 03/07/25 09:19 e-Cigarette/Vaping Use Never Used 03/07/25 09:19 Thrive Assessment: Date of Thrive Assessment Date Thrive assessed 03/07/25 03/07/25 09:19 Currently or been in a relationship where the following occur: I choose not to answer Telehealth Telehealth Telehealth Platform: [employer] [address] Location of provider rendering services: practice address Location of patient: address on file Patient Identification confirmed using: Name, : Yes Telehealth method: video Patient verbally consented to treatment: Yes Patient verbally consented to billing insurance company: Yes Patient informed of any privacy concerns related to visit: Yes Minutes spent on Phone/Video with Pt.: 15 Coding Level of Care Code Tele Est Pt Level 4 (36542) Diagnoses Generalized weakness R53.1 Dementia F03.90 Essential hypertension I10 Acquired hypothyroidism E03.9 Dyslipidemia E78.5 Osteopenia M85.80 Encounter for hospice care discussion Assessment & Plan Assessment & Plan (1) Generalized weakness: Code(s): R53.1 - Weakness (2) Dementia: Code(s): F03.90 - Unspecified dementia, unspecified severity, without behavioral disturbance, psychotic disturbance, mood disturbance, and anxiety Category: Medical (3) Essential hypertension: Code(s): I10 - Essential (primary) hypertension Category: Medical (4) Acquired hypothyroidism: Code(s): E03.9 - Hypothyroidism, unspecified Category: Medical (5) Dyslipidemia: Code(s): E78.5 - Hyperlipidemia, unspecified Category: Medical (6) Osteopenia: Code(s): M85.80 - Other specified disorders of bone density and structure, unspecified site Category: Medical (7) Encounter for hospice care discussion: Code(s): Z71.89 - Other specified counseling Plan Patient made rhythm, generalized weakness difficult to ambulation has to have help with all ADLs. Family requesting hospital bed as patient has several falls while lying in the regular bed, requesting also prescription for has been out of bed with rails , to prevent further falls . Daughter requesting referral to evaluate for hospice care. Orders: [facility]errals [facility] Referral E03.9 - Hypothyroidism, unspecified, E78.5 - Hyperlipidemia, unspecified, F03.90 - Unspecified dementia, unspecified severity, without behavioral disturbance, psychotic disturbance, mood disturbance, and anxiety, I10 - Essential (primary) hypertension, M85.80 - Other specified disorders of bone density and structure, unspecified site, R53.1 - Weakness Medications: New miscellaneous medical supply Prescription for hospital bed with rails, able to adjust back 1 ea 0RF Patient is bedridden, has dementia E03.9 - Hypothyroidism, unspecified, E78.5 - Hyperlipidemia, unspecified, F03.90 - Unspecified dementia, unspecified severity, without behavioral disturbance, psychotic disturbance, mood disturbance, and anxiety, I10 - Essential (primary) hypertension, M85.80 - Other specified disorders of bone density and structure, unspecified site, R53.1 - Weakness
== END 2025-03-07 09:51 | disposition home or self-care (01) ==
LOC: HO.HMCC 08:26
PROVIDERS: PCP Internal Medicine; Visit Provider Internal Medicine
DX: R53.1 Weakness (principal); F03.90 Unspecified dementia, unspecified severity, without behavioral disturbance, psychotic disturbance, mood disturbance, and anxiety; I10 Essential (primary) hypertension; E03.9 Hypothyroidism, unspecified; E78.5 Hyperlipidemia, unspecified; M85.80 Other specified disorders of bone density and structure, unspecified site; Z71.89 Other specified counseling